=== PATIENT | male | born 1995 | race Caucasian/White ===

== ENCOUNTER 2019-07-04 22:18 | Emergency (ER) | payer OTHER ==
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
[2019-07-04 22:34] VITALS: TEMP 98.1; BMI 29.8
[2019-07-04] MEDS ORDERED: ACETAMINOPHEN 500 MG TABLET (FP) PO ONE (22:57)
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
[2019-07-04] MEDS ORDERED: ACETAMINOPHEN 325 MG TABLET (FP) ONE (23:09)
[2019-07-05 00:26] VITALS: BP 120/73; PULSE 85
== END 2019-07-05 00:26 | disposition home or self-care (01) ==
LOC: SUPCPDRO 22:18 → JER 22:18
PROC: B246ZZZ Ultrasonography of Right and Left Heart (ICD-10-PCS; principal; 2019-07-04)
PROC: BW40ZZZ Ultrasonography of Abdomen (ICD-10-PCS; 2019-07-04)
DX: S09.93XA Unspecified injury of face, initial encounter (principal); S80.212A Abrasion, left knee, initial encounter; M79.671 Pain in right foot; V43.52XA Car driver injured in collision with other type car in traffic accident, initial encounter; W22.11XA Striking against or struck by driver side automobile airbag, initial encounter; Y92.414 Local residential or business street as the place of occurrence of the external cause; Y93.89 Activity, other specified; Y99.0 Civilian activity done for income or pay
CPT/HCPCS: 70450-TC; 72125-TC; 73630-TC-RT-FY; 99284-25

== ENCOUNTER 2020-04-30 16:50 | Emergency (ER) | payer OTHER ==
[2020-04-30 17:06] VITALS: BP 153/106; PULSE 112; TEMP 98; BMI 31.8
[2020-04-30] MEDS ORDERED: NAPROXEN 375 MG TABLET PO ONE (17:22)
[2020-04-30] MEDS ORDERED: NAPROXEN 375 MG TABLET ONE (17:23)
== END 2020-04-30 17:31 | disposition home or self-care (01) ==
LOC: FER 16:50
DX: S09.12XA Laceration of muscle and tendon of head, initial encounter (principal)
CPT/HCPCS: 99284-25

== ENCOUNTER 2020-10-26 16:20 | Emergency (ER) | payer OTHER ==
[2020-10-26 16:32] VITALS: BP 137/89; PULSE 88; TEMP 98.8; BMI 31.1
[2020-10-26] MEDS ORDERED: IBUPROFEN 400 MG TABLET (FP) PO ONE ×2 (16:38→16:51)
== END 2020-10-26 18:07 | disposition home or self-care (01) ==
LOC: FER 16:20
DX: M25.561 Pain in right knee (principal); M25.571 Pain in right ankle and joints of right foot
CPT/HCPCS: 73562-TC-RT-FY; 73590-TC-RT-FY; 73610-TC-RT-FY; 99284-25

== ENCOUNTER 2020-12-16 15:20 | Emergency (ER) | payer OTHER ==
[2020-12-16 15:47] VITALS: BP 120/71; PULSE 81; TEMP 98.1; BMI 31.1
[2020-12-16] MEDS ORDERED: EMTRICITABINE 200MG/TENOFOVIR 300MG PO ONE (17:26)
[2020-12-16] MEDS ORDERED: RALTEGRAVIR POTASSIUM 400 MG TAB PO ONE (17:26)
[2020-12-16 21:01] LABS: HIV INTERPRETATION NEGATIVE (NEGATIVE)
== END 2020-12-16 18:21 | disposition home or self-care (01) ==
LOC: FER 15:20
DX: S50.812A Abrasion of left forearm, initial encounter (principal); Z77.21 Contact with and (suspected) exposure to potentially hazardous body fluids; Y35.811A Legal intervention involving manhandling, law enforcement official injured, initial encounter
CPT/HCPCS: 36415; 86704; 86706; 86803; 87340; 87389; 87517; 99283-25

== ENCOUNTER 2021-04-19 15:16 | Emergency (ER) | payer OTHER ==
[2021-04-19 16:14] VITALS: BP 121/83; PULSE 81; TEMP 97.9; BMI 31.1
== END 2021-04-19 17:19 | disposition home or self-care (01) ==
LOC: JERFT 15:16
DX: M25.562 Pain in left knee (principal)
CPT/HCPCS: 99282-25

== ENCOUNTER 2021-06-25 15:59 | Emergency (ER) | payer BC, OTHER ==
[2021-06-25 16:21] VITALS: BP 129/80; PULSE 65; TEMP 97.8; BMI 31.8
== END 2021-06-25 18:05 | disposition home or self-care (01) ==
LOC: JERFT 15:59 → JER 15:59 → JERFT 18:05
DX: S61.412A Laceration without foreign body of left hand, initial encounter (principal); W26.8XXA Contact with other sharp object(s), not elsewhere classified, initial encounter
CPT/HCPCS: 73130-TC-LT-FY; 99283-25

== ENCOUNTER 2021-12-12 13:06 | Emergency (ER) | payer OTHER ==
[2021-12-12 13:19] VITALS: BP 137/87; PULSE 87; RESP 16; TEMP 98.2; BMI 32.5
[2021-12-12] MEDS ORDERED: IBUPROFEN 400 MG TABLET (FP) PO ONE ×2 (13:51→13:59)
== END 2021-12-12 14:51 | disposition home or self-care (01) ==
LOC: FER 13:06
DX: S80.02XA Contusion of left knee, initial encounter (principal)
CPT/HCPCS: 73560-TC-LT-FY; 73560-TC-RT-FY; 99284-25

== ENCOUNTER 2023-01-10 00:24 | Emergency (ER) | payer OTHER ==
[2023-01-10 00:31] VITALS: RESP 18; BMI 32.5
[2023-01-10] MEDS ORDERED: IBUPROFEN 600 MG TABLET (FP) PO ONE ×2 (01:50→01:53)
[2023-01-10 02:04] VITALS: BP 133/88; PULSE 76; TEMP 98.1
== END 2023-01-10 02:08 | disposition home or self-care (01) ==
LOC: FER 00:24
DX: S66.510A Strain of intrinsic muscle, fascia and tendon of right index finger at wrist and hand level, initial encounter (principal); S86.911A Strain of unspecified muscle(s) and tendon(s) at lower leg level, right leg, initial encounter; V89.2XXA Person injured in unspecified motor-vehicle accident, traffic, initial encounter
CPT/HCPCS: 99283-25

== ENCOUNTER 2023-06-27 17:40 | Emergency (ER) | payer OTHER ==
[2023-06-27 17:50] VITALS: BP 128/91; PULSE 98; RESP 18; TEMP 97.8; BMI 32.5
[2023-06-27] MEDS ORDERED: IBUPROFEN 600 MG TABLET (FP) PO ONE (19:42)
[2023-06-27] MEDS: IBUPROFEN 600 MG TABLET (FP) PO ONE (19:44)
== END 2023-06-27 19:55 | disposition home or self-care (01) ==
LOC: FER 17:40
DX: S80.11XA Contusion of right lower leg, initial encounter (principal); S60.413A Abrasion of left middle finger, initial encounter; W22.8XXA Striking against or struck by other objects, initial encounter; Y93.39 Activity, other involving climbing, rappelling and jumping off
CPT/HCPCS: 99283-25

== ENCOUNTER 2023-12-18 18:59 | Emergency (ER) | payer OTHER ==
[2023-12-18 19:06] VITALS: BP 122/87; PULSE 90; RESP 15; TEMP 99.3; BMI 67.8
== END 2023-12-18 20:17 | disposition home or self-care (01) ==
LOC: FER 18:59
DX: Z77.21 Contact with and (suspected) exposure to potentially hazardous body fluids (principal)
CPT/HCPCS: 99283-25